=== PATIENT | male | born 1955 | race Caucasian/White ===

== ENCOUNTER 2019-12-20 12:03 | Outpatient (CLI) | payer OTHER, SELFPAY ==
--- NOTE | ~2019-12-20 | PE_ITS ---
EXAMINATION: PET skull to mid thigh DATE: 12/20/2019 14:31 INDICATION: Enlarged lymph nodes TECHNIQUE: Blood glucose level was mg/dL. 10.47 mCi of 18-fluorodeoxyglucose (18-FDG) was administere d i.v. Low dose computed tomography (CT) images were acquired from the base of the brain to the proxi mal thighs for attenuation correction and anatomic localization. Positron emission tomography (PET) i mages were acquired in the same distribution beginning 60 minutes after injection. Images including f used PET/CT images were reconstructed in axial, coronal, and sagittal planes. Automated exposure cont rol technique was employed. The dose-length product was 521.26mGy-cm. COMPARISON: None FINDINGS: Head/neck: There is symmetric increased activity in the oral cavity, palatine tonsils, parotid glands, submandi bular glands, laryngeal muscles and ocular muscles without CT correlate, likely physiologic. No patho logically enlarged cervical lymphadenopathy or suspicious foci of increased FDG uptake in the visuali zed head or neck. Chest: Mild upper lung predominant emphysema. There is pleural parenchymal scarring at the right apex. Addit ional linear scarring atelectasis/scarring with architectural distortion in the bilateral lower lungs . No pneumonia or suspicious pulmonary nodules. Heart size is normal. No pericardial or pleural effus ion. Mild aneurysmal dilation of the cephalad descending thoracic aorta which measures up to 4.1 x 4. 4 cm tapering to 3.1 x 3.1 cm at the mid descending thoracic aorta. No pathologically enlarged thorac ic lymphadenopathy or FDG avid lesions in the thorax. Abdomen/pelvis/proximal thighs: Physiologic renal accumulation and excretion of FDG activity in the kidneys, bladder and along portio ns of ureters. Normal degree and heterogenous pattern of increased uptake throughout the liver withou t radiologic correlate or dominant FDG avid lesion. The gallbladder, pancreas, spleen and bilateral a drenal glands are normal. There is moderate colonic diverticulosis with a sigmoid predominance. Ther e is no adjacent inflammatory change to suggest diverticulitis. Mild to moderate uptake scattered thr oughout the bowels without radiologic correlate, also likely physiologic. No other abnormal foci of i ncreased FDG uptake or pathologically enlarged lymphadenopathy in the abdomen, pelvis or proximal thi ghs. Musculoskeletal: Indeterminate small focus of mild increased uptake with maximal SUV of 1.8 at the base of the right a cromion where there is a subtle 5 mm lucent lesion but which does not scallop the adjacent cortex. No other suspicious lytic, blastic or FDG avid bone lesions. Internal fixation at the proximal right fe mur. Mild increased uptake overlying the bilateral greater trochanters consistent with trochanteric b ursitis. IMPRESSION: 1. No pathologically enlarged or FDG avid lymphadenopathy. 2. Indeterminate 5 mm lucent lesion at the right acromion with mild increased FDG uptake with differe ntial including multiple myeloma or metastatic disease in the appropriate clinical setting although n o other bone lesions are identified. Consider obtaining SPEP/UPEP levels and contrast-enhanced MRI of the right shoulder. Reviewed, dictated and finalized at location A. IMPRESSION: 1. No pathologically enlarged or FDG avid lymphadenopathy. 2. Indeterminate 5 mm lucent lesion at the right acromion with mild increased F DG uptake with differential including multiple myeloma or metastatic disease in the appropriate clinical setting although no other bone lesions are identified . Consider obtaining SPEP/UPEP levels and contrast-enhanced MRI of the right sh oulder.
[2019-12-20 12:35] LABS: Glucose Point of Care 94 (65-105)
== END 2019-12-20 12:04 | disposition home or self-care (01) ==
PROVIDERS: PCP Family Medicine; Visit Provider Family Medicine
DX: R59.0 Localized enlarged lymph nodes (principal); M89.9 Disorder of bone, unspecified
CPT/HCPCS: 78815; A9552

== ENCOUNTER 2020-07-02 01:00 | Day surgery (SDC) | payer OTHER, SELFPAY ==
[2020-06-23 08:50] VITALS: BMI 26.4
[2020-07-02 09:54] VITALS: BP 131/92; PULSE 82; RESP 18; TEMP 36.7; O2SAT 98
[2020-07-02] MEDS: LACTATED RINGERS 1,000 ML 150 ML IV CONT (10:04)
--- NOTE | 2020-07-02 11:01 | WPDANESEPPF ---
Anes - Initial Pre Proc Eval Procedure: Operation Date: 07/02/20 11:00 Proposed Procedures p Esophagogastroduodenoscopy - Herberth John MD Date/Time: 07/02/20 11:01 Surgeon: Herberth John MD Pre Op Diagnosis: barretts esophagus w/o dysplasia Patient Data Age: 64 Gender: M Height: 6 ft 5 in Weight: 100 kg Last Vital Signs Temp 98.1 F 07/02/20 09:54 Pulse 82 07/02/20 09:54 Resp 18 07/02/20 09:54 BP 131/92 H 07/02/20 09:54 Pulse Ox 98 07/02/20 09:54 Allergies Allergy/AdvReac Type Severity Reaction Status Date / Time No Known Allergies Allergy Unknown Unknown Uncoded 07/02/20 09:53 Home Medications Medication Instructions Recorded Confirmed Type bupropion HCl 150 mg PO DAILY 06/23/20 06/23/20 History mirtazapine 22.5 mg PO DAILY 06/23/20 06/23/20 History mometasone-formoterol [Dulera] 2 inh INHALATION DAILY 06/23/20 06/23/20 History Patient hx anesthesia problems: none Family hx anesthesia problems: none [facility] Past Medical History Medical History (Updated 07/02/20 @ 11:01 by Murtaza Mcguire MD) COPD (chronic obstructive pulmonary disease) Depression Encounter for preoperative screening laboratory testing for COVID-19 virus Social History Social History Smoking packs per day: 3 Smoking cigarettes per day: 60.0 Years smoked: 20 Smoking pack-years: 60.00 Smoking status: Former smoker Tobacco type: cigarettes Alcohol intake: never Substance use type: does not use Living arrangements: with family Spiritual care concerns: No Anes - Eval Final PreProcedure Day of Procedure 07/02/20 11:01 Patient weight: normal Heart: regular rate and rhythm Lungs: clear to auscultation Airway: Mallampati scale class II Neurological: alert and oriented Last oral intake: >/= 8 hours ASA classification: II Emergent: no Anesthetic plan: proceed Anesthesia type and monitoring: general GIVS and standard monitoring Informed Consent: The patient's anesthetic plan and its attendant risks and benefits were discussed with the patient/family/POA. Questions were solicited and answers provided to the satisfaction of the patient/family/POA.
--- NOTE | 2020-07-02 11:36 | PM.HPGS ---
History of Present Illness History of Present Illness Consent: Risks, benefits, and alternatives have been discussed and questions answered. Patient agrees to proceed with procedure. Chief complaint: barretts esophagus w/o dysplasia Narrative: Osmany Hamm is a 64 year old male with holder's found 2019, asymptomatic and not using ppi Review of Systems Constitutional: Constitutional: Denies headache(s) and Denies weakness Eyes: Eyes: Denies blurry vision ENT: Reports Normal hearing present, Denies headache(s) and Denies neck pain Cardiovascular: Cardiovascular: Denies chest pain and Denies dyspnea Respiratory: Respiratory: Denies dyspnea Gastrointestinal: Gastrointestinal: Reports no additional gastrointestinal complaints Genitourinary: Genitourinary: Denies dysuria Musculoskeletal: Musculoskeletal: Denies neck pain Integumentary/Breasts: Skin/Breast: Denies dry skin Neurologic: Reports Normal hearing present, Denies headache(s) and Denies weakness Psychiatric: Psychiatric: Denies anxiety Endocrine: Endocrine: Denies change in body appearance Hematologic/Lymphatic: Hematologic/Lymphatic: Denies easy bleeding Allergic/Immunologic: Allergic/Immunologic: Denies urticaria PMF Past Medical History Medical History (Updated 07/02/20 @ 11:37 by Herberth John MD) Holder esophagus COPD (chronic obstructive pulmonary disease) Depression Encounter for preoperative screening laboratory testing for COVID-19 virus Social History Social History Smoking packs per day: 3 Smoking cigarettes per day: 60.0 Years smoked: 20 Smoking pack-years: 60.00 Smoking status: Former smoker Tobacco type: cigarettes Alcohol intake: never Substance use type: does not use Living arrangements: with family Spiritual care concerns: No Meds Home Medications and Allergies Home Medications Medication Instructions Recorded Confirmed Type bupropion HCl 150 mg PO DAILY 06/23/20 06/23/20 History mirtazapine 22.5 mg PO DAILY 06/23/20 06/23/20 History mometasone-formoterol [Dulera] 2 inh INHALATION DAILY 06/23/20 06/23/20 History Allergies Allergy/AdvReac Type Severity Reaction Status Date / Time No Known Allergies Allergy Unknown Unknown Uncoded 07/02/20 09:53 Vital Signs Vital Signs - 24 hr 07/02/20 09:54 Temperature 98.1 F Pulse Rate 82 Respiratory Rate 18 Blood Pressure 131/92 H Pulse Oximetry 98 Exam Const: General: comfortable and no acute distress HENMT: General nose exam: Normal nares present Eyes: General: appearance normal, both eyes and all related structures Neck: Neck: no JVD Resp: Auscultation: clear to auscultation bilaterally Cardio: Rate: regular rate Rhythm: regular rhythm GI: Inspection: non-distended GI Palp: Yes Soft to palpation Skin: General skin exam: normal color Neuro: General: gait normal Speech: normal speech Extrem: General: normal to inspection Psych: Mental Status: mental status grossly normal Assessment and Plan Assessment and plan (1) Holder esophagus: Code(s): K22.70 - Holder's esophagus without dysplasia Status: Acute Assessment and Plan: egd for dysplasia surveillance
[2020-07-02] MEDS: BENZOCAINE (*SP) 60 ML SPRAY CAN (HURRICAINE) 1 SPRAY MUCOUS MEM (11:39)
[2020-07-02 11:47] VITALS: BP 104/69; PULSE 74; RESP 22; O2SAT 99
[2020-07-02 11:57] VITALS: BP 102/67; PULSE 69; RESP 20; O2SAT 98
[2020-07-02 12:07] VITALS: BP 121/82; PULSE 76; RESP 22; O2SAT 98
[2020-07-02 12:17] VITALS: BP 129/84; PULSE 72; RESP 26; O2SAT 97
== END 2020-07-02 12:21 | disposition home or self-care (01) ==
PROVIDERS: Visit Provider Internal Medicine Gastroenterology
PROC: 0DJ08ZZ Inspection of Upper Intestinal Tract, Via Natural or Artificial Opening Endoscopic (ICD-10-PCS; CPT 43235; principal; 2020-07-02 11:00)
DX: K22.70 Barrett's esophagus without dysplasia (principal); K31.9 Disease of stomach and duodenum, unspecified; J44.9 Chronic obstructive pulmonary disease, unspecified; F32.9 Major depressive disorder, single episode, unspecified; Z87.891 Personal history of nicotine dependence
CPT/HCPCS: 43239; 88305; 88313; J2704; J7120